=== PATIENT | male | born 1955 | race African-American/Black ===

== ENCOUNTER 2022-05-20 14:12 | Inpatient (IN) ==
[2022-05-20] MEDS ORDERED: ENOXAPARIN 100 MG/ML SYRINGE SUBCUT STA (14:43)
[2022-05-20] MEDS ORDERED: ENOXAPARIN 120 MG/0.8 ML SYRINGE SUBCUT STA (14:46)
[2022-05-20] MEDS: DILTIAZEM INJ 100 MG in SODIUM CHLORIDE 0.9% 100 ML IV SCH ×2 (15:06→22:25)
[2022-05-20 15:11] LABS: Basophils % 0.3 % (0.0-0.8); Eosinophils # 0.1 10*3/uL (0.0-0.87); Eosinophils % 1.1 % (0.00-10.9); Hematocrit 42.6 VOL% (42.0-52.0); Hemoglobin 13.3 GM/DL (14.0-18.0); Immature Granulocytes % 0.5 %; Immature Granulocytes Absolute 0.04 #; Lymphocytes # 2.1 10*3/uL (1.4-4.0); Lymphocytes % 27.5 % (21.2-54.2); Mean Corpuscular HGB Conc 31.2 GM/DL (32-36); Mean Corpuscular Volume 93.8 FL (87-102); Mean Platelet Volume 8.9 FL (9.6-12.0); Monocytes # 0.7 10*3/uL (0.11-0.8); Monocytes % 8.9 % (1.7-12.7); Neutrophils % 61.7 % (38.7-73.9); Platelet Count 249 T/CUMM (130-400); Red Blood Count 4.54 MC/CUMM (3.8-5.5); Red Cell Distribution Width 13.2 % (9.3-17.3); White Blood Count 7.5 T/CUMM (4-12)
[2022-05-20 15:32] LABS: Albumin 3.7 G/DL (3.4-5.0); Calcium 9.6 MG/DL (8.5-10.1); Osmolality,Calculated 290.4 MOS/KG (273-304); Potassium 4.3 MMOL/L (3.5-5.1); Total Protein 7.3 G/DL (6.4-8.2)
[2022-05-20] MEDS ORDERED: ONDANSETRON 4 MG/2 ML VIAL IV PRN (15:58)
[2022-05-20] MEDS ORDERED: ENOXAPARIN 120 MG/0.8 ML SYRINGE SUBCUT SCH (16:30)
[2022-05-20] MEDS ORDERED: INFLUENZA VIRUS VACCINE 0.5 ML SYRINGE IM ONE (18:50)
[2022-05-20] MEDS: carvediloL 25 MG TABLET PO SCH (20:15)
[2022-05-20] MEDS: OXYBUTYNIN 5 MG TABLET PO SCH (20:15)
[2022-05-20] MEDS: tiZANidine 4 MG TABLET PO PRN (20:15)
[2022-05-20] MEDS: DONEPEZIL 10 MG TABLET PO SCH (20:15)
[2022-05-20] MEDS ORDERED: HYDROmorphone 1 MG/1 ML SYRINGE IV PRN (20:26)
[2022-05-20] MEDS ORDERED: LOSARTAN 50 MG TABLET PO SCH (21:00)
[2022-05-21 05:36] LABS: Basophils % 0.3 % (0.0-0.8); Eosinophils # 0.1 10*3/uL (0.0-0.87); Eosinophils % 1.1 % (0.00-10.9); Hematocrit 36.8 VOL% (42.0-52.0); Hemoglobin 11.4 GM/DL (14.0-18.0); Immature Granulocytes % 0.6 %; Immature Granulocytes Absolute 0.04 #; Lymphocytes # 1.5 10*3/uL (1.4-4.0); Lymphocytes % 20.5 % (21.2-54.2); Mean Corpuscular Volume 94.8 FL (87-102); Mean Platelet Volume 9.7 FL (9.6-12.0); Monocytes % 14.7 % (1.7-12.7); Neutrophils % 62.8 % (38.7-73.9); Platelet Count 228 T/CUMM (130-400); Red Blood Count 3.88 MC/CUMM (3.8-5.5); Red Cell Distribution Width 13.4 % (9.3-17.3); White Blood Count 7.1 T/CUMM (4-12)
[2022-05-21 05:59] LABS: Calcium 8.7 MG/DL (8.5-10.1); Osmolality,Calculated 292.4 MOS/KG (273-304); Potassium 4.4 MMOL/L (3.5-5.1)
[2022-05-21] MEDS ORDERED: HYDROmorphone 1 MG/1 ML SYRINGE IV PRN (07:57)
[2022-05-21 08:23] LABS: Thyroid Stimulating Hormone 1.16 uIU/ml (0.358-3.74)
[2022-05-21] MEDS: carvediloL 25 MG TABLET PO SCH ×2 (08:23→21:07)
[2022-05-21] MEDS: OXYBUTYNIN 5 MG TABLET PO SCH ×2 (08:24→21:07)
[2022-05-21] MEDS: DOCUSATE/SENNA 50-8.6 MG TABLET PO SCH (08:24)
[2022-05-21] MEDS: ASPIRIN EC 81 MG TABLET PO SCH (08:24)
[2022-05-21] MEDS: SIMVASTATIN 10 MG TABLET PO SCH (08:24)
[2022-05-21] MEDS: TAMSULOSIN 0.4 MG CAPSULE PO SCH (08:25)
[2022-05-21] MEDS: PANTOPRAZOLE 40 MG TABLET PO SCH (08:25)
[2022-05-21] MEDS: DILTIAZEM INJ 100 MG in SODIUM CHLORIDE 0.9% 100 ML IV SCH (08:26)
[2022-05-21] MEDS: DILTIAZEM 60 MG TABLET PO SCH ×3 (08:31→21:07)
[2022-05-21 09:15] LABS: Risk Ratio 3.11; VLDL Cholesterol 33.8 MG/DL
[2022-05-21 09:40] LABS: Barbiturates Screen,Urine Negative (Negative); Benzodiazepines Screen,Urine Negative (Negative); Cannabinoid Screen,Urine Negative (Negative); Opiate Screen,Urine Positive (Negative); Phencyclidine Screen,Urine Negative (Negative)
[2022-05-21] MEDS: SODIUM CHLORIDE 0.9% 1,000 ML IV SCH ×2 (11:27→21:20)
[2022-05-21] MEDS: AMIODARONE 200 MG TABLET PO SCH ×2 (13:02→21:14)
[2022-05-21] MEDS: NON-FORMULARY MEDICATION (Sildenafil 100 mg Tablet) PO SCH (13:27)
[2022-05-21] MEDS: tiZANidine 4 MG TABLET PO PRN (16:30)
[2022-05-21] MEDS: DONEPEZIL 10 MG TABLET PO SCH (21:07)
[2022-05-21] MEDS: ASCORBIC ACID 500 MG TABLET PO SCH (21:07)
[2022-05-22] MEDS: DILTIAZEM 60 MG TABLET PO SCH ×2 (02:45→10:16)
[2022-05-22] MEDS ORDERED: ENOXAPARIN 120 MG/0.8 ML SYRINGE SUBCUT SCH (03:00)
[2022-05-22 06:17] LABS: Basophils % 0.2 % (0.0-0.8); Eosinophils # 0.1 10*3/uL (0.0-0.87); Eosinophils % 0.8 % (0.00-10.9); Hematocrit 35.1 VOL% (42.0-52.0); Hemoglobin 10.6 GM/DL (14.0-18.0); Immature Granulocytes % 1.8 %; Immature Granulocytes Absolute 0.16 #; Lymphocytes # 1.3 10*3/uL (1.4-4.0); Lymphocytes % 14.5 % (21.2-54.2); Mean Corpuscular HGB Conc 30.2 GM/DL (32-36); Mean Platelet Volume 9.4 FL (9.6-12.0); Monocytes # 1.1 10*3/uL (0.11-0.8); Monocytes % 12.3 % (1.7-12.7); Neutrophils % 70.4 % (38.7-73.9); Platelet Count 179 T/CUMM (130-400); Red Blood Count 3.62 MC/CUMM (3.8-5.5); Red Cell Distribution Width 13.2 % (9.3-17.3); White Blood Count 8.8 T/CUMM (4-12)
[2022-05-22 06:32] LABS: Calcium 8.4 MG/DL (8.5-10.1); Osmolality,Calculated 291.3 MOS/KG (273-304); Potassium 4.5 MMOL/L (3.5-5.1)
[2022-05-22] MEDS ORDERED: MAGNESIUM SULF RIDER 2 GM/50 ML PREMIX IV ONE (07:30)
[2022-05-22] MEDS: carvediloL 25 MG TABLET PO SCH (09:53)
[2022-05-22] MEDS: AMIODARONE 200 MG TABLET PO SCH (09:53)
[2022-05-22] MEDS: SIMVASTATIN 10 MG TABLET PO SCH (09:54)
[2022-05-22] MEDS: OXYBUTYNIN 5 MG TABLET PO SCH (09:54)
[2022-05-22] MEDS: ASPIRIN EC 81 MG TABLET PO SCH (09:54)
[2022-05-22] MEDS: PANTOPRAZOLE 40 MG TABLET PO SCH (09:54)
[2022-05-22] MEDS: TAMSULOSIN 0.4 MG CAPSULE PO SCH (09:54)
[2022-05-22] MEDS: ASCORBIC ACID 500 MG TABLET PO SCH (09:54)
[2022-05-22] MEDS: DOCUSATE/SENNA 50-8.6 MG TABLET PO SCH (10:16)
[2022-05-22] MEDS: NON-FORMULARY MEDICATION (Sildenafil 100 mg Tablet) PO SCH (10:17)
[2022-05-22 12:04] VITALS: BP 133/78
== END 2022-05-22 15:05 | disposition home health service (06) | DRG 309 ==
LOC: EDBD → EDUNIT# → N.ED 14:12 → SUATTDRO 15:58 → N.EDINP 15:58 → N.TELES 18:31
PROVIDERS: ADMIT Family Medicine; ATTEND Internal Medicine